=== PATIENT | male | born 1955 | race Caucasian/White ===

== ENCOUNTER 2016-09-14 07:25 | Day surgery (SDC) | payer OTHER ==
[~2016-09-14] VITALS: Ht 182.9 cm; Wt 104.0 kg
[~2016-09-14 07:25] MED LIST: 0.9% Sodium Chloride 1,000 ML IV SCH; ALLO300T2 PO; IBUP800T28 PO; LEVO112T3 PO; METF850T2 PO; SIMV10TA4 PO; Sodium Chloride LOK Flush 10 mL Syringe IV PRN; TELM1TAB3 PO; fentaNYL-PF 50 mCg/mL 2 mL Inj IVPUSH PRN
[2016-09-14 08:07] VITALS: BP 121/79; PULSE 71; RESP 16; O2SAT 96
[2016-09-14 09:03] VITALS: BP 109/67; RESP 14; O2SAT 93
[2016-09-14 09:12] VITALS: BP 103/67; PULSE 58; RESP 14; O2SAT 92
--- NOTE | 2016-09-14 13:05 | ENDO ---
[address] [address] ENDOSCOPY PROCEDURE PATIENT: HALEY ROWLAND : 1955 MR#: [id number] ADMIT: 09/14/2016 JOB ID: [id number] PROCEDURE: Colonoscopy. INDICATION: Screening. Patient's ASA classification is two. Mallampati score is two. MEDICATIONS: Versed 6 mg, fentanyl 100 mcg. INSTRUMENT USED: PCF H 180 AL. PREPARATION QUALITY: Poor. PROCEDURE DETAILS: After informed consent was obtained, the patient was brought into the GI suite where he was placed on oxygen via nasal cannula and monitored with continuous pulse oximeter, telemetry, and blood pressure monitoring. A time-out was performed, then he was placed in the left lateral decubitus position and medications were administered for sedation. Digital rectal exam was performed which was unremarkable. The colonoscope was then inserted into the rectum and advanced under direct visualization to the cecum, which was identified by the presence of the appendiceal orifice and ileocecal valve. Once the cecum was reached, the colonoscope was withdrawn back into the rectum as the mucosa and lumen were examined. In the rectum, retroflexion was performed. Following retroflexion, the remaining air in the rectum was suctioned and the procedure was completed. FINDINGS: 1. There was a diminutive polyp that was seen in the cecum that was removed with cold biopsy forceps. 2. In the transverse colon, there was an approximately 6 mm sessile polyp that was removed with a hot snare. 3. In the descending colon, there was a 4 mm bilobed polyp that was removed with a cold snare. 4. Scattered diverticula were seen throughout the left side of the colon. 5. There was adherent stool throughout the ascending and transverse colon that we were not able to completely clear despite aggressive irrigation and suctioning. Therefore smaller polyps may have been missed, but no large lesions seen. IMPRESSION: 1. Cecal polyp. 2. Transverse polyp. 3. Descending colon polyp. 4. Left-sided diverticulosis. 5. Inadequate prep. RECOMMENDATIONS: Repeat colonoscopy within the next six months. COMPLICATIONS: None. ESTIMATED BLOOD LOSS: Less than 5 mL.
--- NOTE | 2016-09-17 12:13 | PATH ---
SURGICAL PATHOLOGY Attending Physician:Khanh Martel CASE STATUS: Signed Out PATIENT NAME: HALEY ROWLAND PID: [id number] : 1955 DATE COLLECTED:09/14/2016 15:28 SPECIMEN: 1: Colon, Polyp 2: Colon, Polyp 3: Colon, Polyp CLINICAL HISTORY: 1). TRANSVERSE POLYP X1 2). CECAL POLYP X1 3). DESCENDING POLYP X1 FINAL DIAGNOSIS: 1.TRANSVERSE COLON POLYP: SESSILE SERRATED ADENOMA. 2.CECAL POLYP: TUBULAR ADENOMA. 3.DESCENDING COLON POLYP: TUBULAR ADENOMA. ICD10 D12.0 GROSS DESCRIPTION: Received are three formalin-filled containers, each labeled with the patient' s name. 1. Received in formalin, labeled with the patient' s name and "transverse polyp", are two fragments of jackson, soft tissue ranging in size from 0.2 x 0.1 x 0.1 cm to 0.2 x 0.2 x 0.2 cm. All fragments are totally submitted in cassette 1A. 2. Received in formalin, labeled with the patient' s name and "cecal polyp", is one fragment of jackson, soft tissue measuring 0.1 x 0.1 x 0.1 cm. The fragment is totally submitted in cassette 2A. 3. Received in formalin, labeled with the patient' s name and "descending polyp", are two fragments of jackson, soft tissue ranging in size from 0.1 x 0.1 x 0.1 cm to 0.2 x 0.2 x 0.2 cm. All fragments are totally submitted in cassette 3A. ([id number]) MICRO DESCRIPTION: See diagnosis. ICD-9 CODES: CPT CODES: 1: 33566 2: 76335 3: 83192 Electronically Signed Out Felice Anderson MD [facility] [address], [place] [address] Technical component performed at [facility], [address], [place], [address]
== END 2016-09-14 23:59 | disposition home or self-care (01) ==
LOC: END 07:25
PROVIDERS: ATTEND Internal Medicine Gastroenterology
DX: Z12.11 Encounter for screening for malignant neoplasm of colon (principal); D12.0 Benign neoplasm of cecum; D12.3 Benign neoplasm of transverse colon; D12.4 Benign neoplasm of descending colon; K57.30 Diverticulosis of large intestine without perforation or abscess without bleeding; I10 Essential (primary) hypertension; E11.9 Type 2 diabetes mellitus without complications; E03.9 Hypothyroidism, unspecified; E78.5 Hyperlipidemia, unspecified; M10.9 Gout, unspecified; E66.9 Obesity, unspecified; Z68.31 Body mass index [BMI] 31.0-31.9, adult; Z79.84 Long term (current) use of oral hypoglycemic drugs
CPT/HCPCS: 45380; 45385; 99153; G0500; J2250; J3010; J7030